=== PATIENT | male | born 1935 ===

== ENCOUNTER 2021-03-23 11:14 | Observation (INO) ==
[2021-03-23] MEDS ORDERED: SODIUM CHLORIDE 0.9% 500 ML IV STA (11:46)
[2021-03-23] MEDS ORDERED: cefTRIAXone 1,000 MG in SODIUM CHLORIDE 0.9% 100 ML IV STA (11:49)
[2021-03-23 12:28] LABS: Basophils % 0.1 % (0.0-0.8); Eosinophils % 0.1 % (0.00-10.9); Hematocrit 33.1 VOL% (42.0-52.0); Hemoglobin 11.9 GM/DL (14.0-18.0); Immature Granulocytes % 0.3 %; Immature Granulocytes Absolute 0.02 #; Lymphocytes # 2.3 10*3/uL (1.4-4.0); Mean Corpuscular Volume 82.8 FL (87-102); Mean Platelet Volume 11.1 FL (9.6-12.0); Monocytes % 6.7 % (1.7-12.7); Neutrophils % 58.8 % (38.7-73.9); Platelet Count 226 T/CUMM (130-400); Red Cell Distribution Width 15.1 % (9.3-17.3); White Blood Count 6.9 T/CUMM (4-12)
[2021-03-23 12:38] LABS: INR 1.1; PT Patient Result 11.8 SECS (10.5-12.0); Partial Thromboplastin Time 25.1 SECS (23.8-32.1)
[2021-03-23 12:51] LABS: Albumin 3.3 G/DL (3.4-5.0); Bilirubin,Total 0.7 MG/DL (0.20-1.00); Calcium 9.8 MG/DL (8.5-10.1); Osmolality,Calculated 282.3 MOS/KG (273-304); Potassium 3.6 MMOL/L (3.5-5.1); Total Protein 6.3 G/DL (6.4-8.2)
[2021-03-23 13:30] LABS: Sedimentation Rate-Westergren 28 MM/HR (0-20)
[2021-03-23 13:51] LABS: Bacteria,Urine Occasional /HPF (Few); Bilirubin,Urine Negative (Negative); Blood, Urine Moderate mg/dL (Negative); Glucose,Urine (UA) Negative (Negative); Hyaline Casts,Urine 1 /LPF (0-3); Ketones,Urine Negative (Negative); Mucus,Urine Occasional /LPF (Occasional); Nitrite,Urine Negative (Negative); Protein,Urine Negative; RBC,Urine 44 /HPF (0-4); Squamous Epithelial Cell,Urine Occasional /HPF (0-10); Urine Appearance CLEAR (Clear); Urine Color Straw (Yellow); Urine Specific Gravity 1.004 (1.001-1.035); Urine Urobilinogen < 2.0 EU/DL (<2.0)
[2021-03-23] MEDS ORDERED: DEXTROSE 50% 25 GM/50 ML SYRINGE IV PRN (14:52)
[2021-03-23] MEDS ORDERED: DOCUSATE SODIUM 100 MG CAPSULE PO PRN (14:52)
[2021-03-23] MEDS ORDERED: GLUCAGON 1 MG VIAL IM PRN (14:52)
[2021-03-23] MEDS ORDERED: CALCIUM CARBONATE CHEW 500 MG TABLET PO PRN (14:52)
[2021-03-23] MEDS ORDERED: SIMETHICONE CHEW 125 MG TABLET PO PRN (14:52)
[2021-03-23] MEDS ORDERED: ONDANSETRON 4 MG/2 ML VIAL IV PRN (14:52)
[2021-03-23] MEDS ORDERED: ACETAMINOPHEN 325 MG TABLET PO PRN (14:52)
[2021-03-23] MEDS: LACTATED RINGERS 1,000 ML IV SCH (16:10)
[2021-03-23] MEDS: PANTOPRAZOLE 40 MG TABLET PO SCH (16:10)
[2021-03-23] MEDS: INSULIN LISPRO 100 UNIT/ML SUBCUT SCH ×2 (18:20→23:50)
[2021-03-24] MEDS: INSULIN LISPRO 100 UNIT/ML SUBCUT SCH ×2 (05:43→13:35)
[2021-03-24 06:25] LABS: Basophils % 0.2 % (0.0-0.8); Eosinophils % 0.4 % (0.00-10.9); Hematocrit 28.6 VOL% (42.0-52.0); Hemoglobin 10.4 GM/DL (14.0-18.0); Immature Granulocytes % 0.2 %; Immature Granulocytes Absolute 0.01 #; Lymphocytes # 1.2 10*3/uL (1.4-4.0); Lymphocytes % 23.4 % (21.2-54.2); Mean Corpuscular HGB Conc 36.4 GM/DL (32-36); Mean Corpuscular Volume 82.7 FL (87-102); Mean Platelet Volume 11.2 FL (9.6-12.0); Monocytes % 8.3 % (1.7-12.7); Neutrophils % 67.5 % (38.7-73.9); Platelet Count 197 T/CUMM (130-400); Red Blood Count 3.46 MC/CUMM (3.8-5.5); Red Cell Distribution Width 15.1 % (9.3-17.3); White Blood Count 5.1 T/CUMM (4-12)
[2021-03-24 06:40] LABS: Albumin 2.4 G/DL (3.4-5.0); Bilirubin,Total 1.2 MG/DL (0.20-1.00); Osmolality,Calculated 287.8 MOS/KG (273-304); Potassium 3.5 MMOL/L (3.5-5.1); Risk Ratio 1.82; Total Protein 5.2 G/DL (6.4-8.2); VLDL Cholesterol 7.8 MG/DL
[2021-03-24 08:46] LABS: Platelet Estimate Normal; Target Cells Few
[2021-03-24] MEDS ORDERED: cefTRIAXone 1,000 MG VIAL IV SCH (09:00)
[2021-03-24] MEDS ORDERED: DESITIN 4OZ/NYSTATIN 15 GRAM MIXTURE PASTE TOP SCH (09:00)
[2021-03-24] MEDS: PANTOPRAZOLE 40 MG TABLET PO SCH (09:15)
[2021-03-24] MEDS: LACTATED RINGERS 1,000 ML IV SCH ×2 (09:18→11:47)
[2021-03-24 12:47] VITALS: BP 100/51
== END 2021-03-24 14:18 | disposition home health service (06) ==
LOC: EDUNIT# → EDBD → N.ED 11:14 → N.TELES 11:14
PROVIDERS: ADMIT Internal Medicine; ATTEND Internal Medicine

== ENCOUNTER 2021-04-04 23:35 | Inpatient (IN) ==
[2021-04-05 00:11] LABS: Hemoglobin 11.1 GM/DL (14.0-18.0); Immature Granulocytes % 0.2 %; Immature Granulocytes Absolute 0.01 #; Lymphocytes # 1.1 10*3/uL (1.4-4.0); Lymphocytes % 22.8 % (21.2-54.2); Mean Corpuscular HGB Conc 35.8 GM/DL (32-36); Mean Corpuscular Volume 82.9 FL (87-102); Mean Platelet Volume 11.4 FL (9.6-12.0); Monocytes % 4.7 % (1.7-12.7); Neutrophils % 72.3 % (38.7-73.9); Platelet Count 173 T/CUMM (130-400); Red Blood Count 3.74 MC/CUMM (3.8-5.5); Red Cell Distribution Width 14.5 % (9.3-17.3); White Blood Count 4.7 T/CUMM (4-12)
[2021-04-05 00:27] LABS: Albumin 2.8 G/DL (3.4-5.0); Bilirubin,Total 0.7 MG/DL (0.20-1.00); Calcium 9.6 MG/DL (8.5-10.1); Osmolality,Calculated 277.8 MOS/KG (273-304); Potassium 3.9 MMOL/L (3.5-5.1); Total Protein 6.2 G/DL (6.4-8.2)
[2021-04-05 00:39] LABS: Bilirubin,Urine Negative (Negative); Blood, Urine Small mg/dL (Negative); Glucose,Urine (UA) 50 mg/dL (Negative); Ketones,Urine Negative (Negative); Mucus,Urine Occasional /LPF (Occasional); Nitrite,Urine Negative (Negative); Protein,Urine 30 MG/DL; RBC,Urine 1 /HPF (0-4); Squamous Epithelial Cell,Urine Occasional /HPF (0-10); Urine Appearance CLEAR (Clear); Urine Color Yellow (Yellow); Urine Specific Gravity 1.016 (1.001-1.035); Urine Urobilinogen < 2.0 EU/DL (<2.0)
[2021-04-05 00:44] LABS: Barbiturates Screen,Urine Negative (Negative); Benzodiazepines Screen,Urine Negative (Negative); Cannabinoid Screen,Urine Negative (Negative); Opiate Screen,Urine Negative (Negative); Phencyclidine Screen,Urine Negative (Negative)
[2021-04-05 00:48] LABS: PT Patient Result 11.6 SECS (10.5-12.0); Partial Thromboplastin Time 25.9 SECS (23.8-32.1)
[2021-04-05] MEDS ORDERED: DEXTROSE 50% 25 GM/50 ML SYRINGE IV PRN (02:24)
[2021-04-05] MEDS ORDERED: GLUCAGON 1 MG VIAL IM PRN (02:24)
[2021-04-05 03:53] LABS: Hematocrit 30.8 VOL% (42.0-52.0); Immature Granulocytes % 0.2 %; Immature Granulocytes Absolute 0.01 #; Lymphocytes % 23.1 % (21.2-54.2); Mean Corpuscular HGB Conc 35.7 GM/DL (32-36); Mean Corpuscular Volume 82.8 FL (87-102); Mean Platelet Volume 11.1 FL (9.6-12.0); Monocytes % 4.3 % (1.7-12.7); Neutrophils % 72.4 % (38.7-73.9); Platelet Count 187 T/CUMM (130-400); Red Blood Count 3.72 MC/CUMM (3.8-5.5); Red Cell Distribution Width 14.4 % (9.3-17.3); White Blood Count 4.2 T/CUMM (4-12)
[2021-04-05 04:14] LABS: Calcium 9.8 MG/DL (8.5-10.1); Osmolality,Calculated 278.8 MOS/KG (273-304); Potassium 3.6 MMOL/L (3.5-5.1); Risk Ratio 1.93; VLDL Cholesterol 6.4 MG/DL
[2021-04-05] MEDS: LACTATED RINGERS 1,000 ML IV SCH (04:29)
[2021-04-05] MEDS ORDERED: LORazepam 2 MG/1 ML VIAL ONE (06:14)
[2021-04-05] MEDS ORDERED: LORazepam 2 MG/1 ML VIAL IV ONE (06:15)
[2021-04-05] MEDS: ALBUTEROL/IPRATROPIUM 3 ML NEB RESP TX SCH ×2 (07:25→14:05)
[2021-04-05] MEDS ORDERED: ASPIRIN EC 81 MG TABLET PO SCH (09:00)
[2021-04-05] MEDS ORDERED: ATORVASTATIN 20 MG TABLET PO SCH (09:00)
[2021-04-05] MEDS ORDERED: INFLUENZA VIRUS VACCINE 0.5 ML SYRINGE IM ONE (09:00)
[2021-04-05] MEDS: ENOXAPARIN 40 MG/0.4 ML SYRINGE SUBCUT SCH ×2 (09:35→09:42)
[2021-04-05] MEDS: PANTOPRAZOLE 40 MG TABLET PO SCH (09:35)
[2021-04-05] MEDS ORDERED: SODIUM CHLORIDE 0.9% 500 ML IV ONE (13:30)
[2021-04-05] MEDS ORDERED: NOREPINEPHRINE 4 MG/4 ML VIAL IV ONE (13:46)
[2021-04-05] MEDS: NOREPINEPHRINE 8 MG in SODIUM CHLORIDE 0.9% 242 ML IV PRN (13:50)
[2021-04-05 14:10] LABS: ABG HCO3 22.4 MMOL/L (20-26); ABG Oxygen Saturation 94.4 % (95-100); ABG PCO2 29.5 MM HG (35-48); ABG PH 7.499 (7.35-7.45); ABG PO2 70.4 MM HG (80-95); ABG TCO2 23.3 MMOL/L (23-27)
[2021-04-05 14:11] LABS: Hematocrit 27.3 VOL% (42.0-52.0); Hemoglobin 9.9 GM/DL (14.0-18.0); Immature Granulocytes % 0.3 %; Immature Granulocytes Absolute 0.01 #; Lymphocytes # 0.8 10*3/uL (1.4-4.0); Lymphocytes % 26.6 % (21.2-54.2); Mean Corpuscular HGB Conc 36.3 GM/DL (32-36); Monocytes % 7.1 % (1.7-12.7); Platelet Count 170 T/CUMM (130-400); Red Blood Count 3.33 MC/CUMM (3.8-5.5); Red Cell Distribution Width 14.4 % (9.3-17.3); White Blood Count 3.1 T/CUMM (4-12)
[2021-04-05] MEDS: HYDROCORTISONE 100 MG VIAL IV SCH ×2 (14:20→19:45)
[2021-04-05 14:24] LABS: Osmolality,Calculated 286.3 MOS/KG (273-304); Potassium 3.2 MMOL/L (3.5-5.1)
[2021-04-05 14:28] LABS: Lactic Acid 1.8 MMOL/L (0.4-2.0)
[2021-04-05] MEDS: cefTRIAXone 1,000 MG in SODIUM CHLORIDE 0.9% 100 ML IV SCH (14:30)
[2021-04-05] MEDS ORDERED: AZITHROMYCIN INJ 500 MG in SODIUM CHLORIDE 0.9% 250 ML IV ONE (15:00)
[2021-04-05] MEDS: VANCOMYCIN INJ 1,000 MG in SODIUM CHLORIDE 0.9% 250 ML IV SCH (15:00)
[2021-04-05] MEDS: ASPIRIN 300 MG SUPP RECTAL SCH (16:30)
[2021-04-05 17:16] LABS: Lymphocytes 25 % (20-55); Segmented Neutrophils 73 % (50-85); Total Cells Counted 100
[2021-04-05 17:17] LABS: Microcytosis 1+; Platelet Estimate Decreased; Reactive Lymphocytes 1+
[2021-04-05] MEDS: SKIN HEALING OINT (AQUAPHOR) 50 GM TUBE TOP SCH (18:11)
[2021-04-05 20:35] LABS: ABG Base Excess -0.4 MMOL/L (-2.5-2.5); ABG HCO3 24.2 MMOL/L (20-26); ABG PCO2 26.6 MM HG (35-48); ABG PH 7.513 (7.35-7.45); ABG TCO2 18.8 MMOL/L (23-27)
[2021-04-06] MEDS: LORazepam 2 MG/1 ML VIAL IV PRN ×2 (01:46→05:26)
[2021-04-06] MEDS: HYDROCORTISONE 100 MG VIAL IV SCH ×3 (02:45→15:52)
[2021-04-06] MEDS ORDERED: PHENTOLAMINE 5 MG VIAL ONE (02:50)
[2021-04-06] MEDS ORDERED: PHENTOLAMINE 5 MG VIAL INFILTRAT ONE (02:56)
[2021-04-06] MEDS: VANCOMYCIN INJ 1,000 MG in SODIUM CHLORIDE 0.9% 250 ML IV SCH (03:22)
[2021-04-06 05:37] LABS: Basophils % 0.2 % (0.0-0.8); Hematocrit 31.6 VOL% (42.0-52.0); Hemoglobin 11.5 GM/DL (14.0-18.0); Immature Granulocytes % 0.5 %; Immature Granulocytes Absolute 0.06 #; Lymphocytes # 1.6 10*3/uL (1.4-4.0); Lymphocytes % 12.3 % (21.2-54.2); Mean Corpuscular HGB Conc 36.4 GM/DL (32-36); Mean Corpuscular Volume 81.2 FL (87-102); Mean Platelet Volume 11.7 FL (9.6-12.0); Monocytes % 2.3 % (1.7-12.7); Neutrophils % 84.7 % (38.7-73.9); Platelet Count 213 T/CUMM (130-400); Red Blood Count 3.89 MC/CUMM (3.8-5.5); Red Cell Distribution Width 14.6 % (9.3-17.3); White Blood Count 13.3 T/CUMM (4-12)
[2021-04-06 05:56] LABS: Calcium 9.2 MG/DL (8.5-10.1); Osmolality,Calculated 282.7 MOS/KG (273-304); Potassium 3.7 MMOL/L (3.5-5.1)
[2021-04-06] MEDS: ALBUTEROL/IPRATROPIUM 3 ML NEB RESP TX SCH ×4 (06:10→19:08)
[2021-04-06] MEDS: ENOXAPARIN 40 MG/0.4 ML SYRINGE SUBCUT SCH (10:00)
[2021-04-06] MEDS: LACTATED RINGERS 1,000 ML IV SCH ×2 (10:00→15:36)
[2021-04-06] MEDS: SKIN HEALING OINT (AQUAPHOR) 50 GM TUBE TOP SCH (10:17)
[2021-04-06] MEDS: ATORVASTATIN 40 MG TABLET PO SCH (10:17)
[2021-04-06] MEDS: PANTOPRAZOLE 40 MG TABLET PO SCH (10:18)
[2021-04-06] MEDS: ASPIRIN 300 MG SUPP RECTAL SCH (11:08)
[2021-04-06] MEDS: cefTRIAXone 1,000 MG in SODIUM CHLORIDE 0.9% 100 ML IV SCH (15:36)
[2021-04-06] MEDS: AZITHROMYCIN INJ 250 MG in SODIUM CHLORIDE 0.9% 250 ML IV SCH (15:41)
[2021-04-07] MEDS: ALBUTEROL/IPRATROPIUM 3 ML NEB RESP TX SCH ×4 (00:47→18:19)
[2021-04-07] MEDS: HYDROCORTISONE 100 MG VIAL IV SCH ×2 (02:13→16:30)
[2021-04-07] MEDS: VANCOMYCIN INJ 1,000 MG in SODIUM CHLORIDE 0.9% 250 ML IV SCH (02:14)
[2021-04-07] MEDS: LACTATED RINGERS 1,000 ML IV SCH ×2 (03:16→05:33)
[2021-04-07] MEDS ORDERED: LORazepam 2 MG/1 ML VIAL IV PRN (03:47)
[2021-04-07 05:06] LABS: Basophils % 0.1 % (0.0-0.8); Hematocrit 28.8 VOL% (42.0-52.0); Hemoglobin 10.3 GM/DL (14.0-18.0); Immature Granulocytes % 0.4 %; Immature Granulocytes Absolute 0.03 #; Lymphocytes # 1.2 10*3/uL (1.4-4.0); Lymphocytes % 14.4 % (21.2-54.2); Mean Corpuscular HGB Conc 35.8 GM/DL (32-36); Mean Corpuscular Volume 82.5 FL (87-102); Mean Platelet Volume 11.6 FL (9.6-12.0); Monocytes % 6.9 % (1.7-12.7); Neutrophils % 78.2 % (38.7-73.9); Platelet Count 179 T/CUMM (130-400); Red Blood Count 3.49 MC/CUMM (3.8-5.5); Red Cell Distribution Width 14.6 % (9.3-17.3); White Blood Count 8.2 T/CUMM (4-12)
[2021-04-07 05:30] LABS: Calcium 8.8 MG/DL (8.5-10.1); Osmolality,Calculated 289.1 MOS/KG (273-304); Potassium 3.3 MMOL/L (3.5-5.1)
[2021-04-07] MEDS: NOREPINEPHRINE 8 MG in SODIUM CHLORIDE 0.9% 242 ML IV PRN (11:30)
[2021-04-07 11:35] LABS: Lymphocytes,CSF 1 %; Monocytes,CSF 8 %; Neutrophils,CSF 91 %; Red Blood Cell,CSF 25 C/CUMM; White Blood Cell,CSF 162 C/CUMM
[2021-04-07 11:36] LABS: Appearance,CSF Clear
[2021-04-07 11:39] LABS: Glucose,CSF 99 MG/DL (40-70)
[2021-04-07] MEDS: AZITHROMYCIN INJ 250 MG in SODIUM CHLORIDE 0.9% 250 ML IV SCH (16:00)
[2021-04-07] MEDS: cefTRIAXone 1,000 MG in SODIUM CHLORIDE 0.9% 100 ML IV SCH (16:30)
[2021-04-07] MEDS: SKIN HEALING OINT (AQUAPHOR) 50 GM TUBE TOP SCH (16:50)
[2021-04-07] MEDS: ASPIRIN 300 MG SUPP RECTAL SCH (17:25)
[2021-04-07] MEDS: PANTOPRAZOLE 40 MG TABLET PO SCH (17:26)
[2021-04-07] MEDS: ATORVASTATIN 40 MG TABLET PO SCH ×2 (17:26→21:30)
[2021-04-07] MEDS ORDERED: LORazepam 2 MG/1 ML VIAL IV ONE (20:24)
[2021-04-08] MEDS: LACTATED RINGERS 1,000 ML IV SCH ×2 (00:15→16:03)
[2021-04-08] MEDS: ALBUTEROL/IPRATROPIUM 3 ML NEB RESP TX SCH ×4 (00:55→19:40)
[2021-04-08] MEDS: HYDROCORTISONE 100 MG VIAL IV SCH ×3 (02:19→21:10)
[2021-04-08] MEDS: VANCOMYCIN INJ 1,000 MG in SODIUM CHLORIDE 0.9% 250 ML IV SCH (02:20)
[2021-04-08] MEDS: PANTOPRAZOLE 40 MG VIAL IV SCH (08:03)
[2021-04-08] MEDS: SKIN HEALING OINT (AQUAPHOR) 50 GM TUBE TOP SCH (08:03)
[2021-04-08] MEDS: ASPIRIN CHEW 81 MG TABLET PO SCH (08:03)
[2021-04-08] MEDS: MIDODRINE 5 MG TABLET PO SCH ×2 (08:03→21:10)
[2021-04-08] MEDS: INSULIN REGULAR 100 UNIT/ML SUBCUT SCH ×2 (12:10→18:03)
[2021-04-08 13:41] LABS: VDRL Spinal Fluid Negative (Negative)
[2021-04-08] MEDS: AZITHROMYCIN INJ 250 MG in SODIUM CHLORIDE 0.9% 250 ML IV SCH (15:20)
[2021-04-08] MEDS: cefTRIAXone 1,000 MG in SODIUM CHLORIDE 0.9% 100 ML IV SCH (15:50)
[2021-04-08] MEDS: ATORVASTATIN 40 MG TABLET PO SCH (21:10)
[2021-04-09] MEDS: ALBUTEROL/IPRATROPIUM 3 ML NEB RESP TX SCH ×4 (00:10→20:10)
[2021-04-09] MEDS: INSULIN REGULAR 100 UNIT/ML SUBCUT SCH ×3 (00:35→18:34)
[2021-04-09 01:35] LABS: Basophils % 0.1 % (0.0-0.8); Hematocrit 27.9 VOL% (42.0-52.0); Hemoglobin 10.1 GM/DL (14.0-18.0); Immature Granulocytes % 0.5 %; Immature Granulocytes Absolute 0.04 #; Lymphocytes # 0.7 10*3/uL (1.4-4.0); Lymphocytes % 8.8 % (21.2-54.2); Mean Corpuscular HGB Conc 36.2 GM/DL (32-36); Mean Corpuscular Volume 82.5 FL (87-102); Monocytes % 4.6 % (1.7-12.7); Platelet Count 165 T/CUMM (130-400); Red Blood Count 3.38 MC/CUMM (3.8-5.5); Red Cell Distribution Width 14.6 % (9.3-17.3); White Blood Count 8.3 T/CUMM (4-12)
[2021-04-09] MEDS: VANCOMYCIN INJ 1,000 MG in SODIUM CHLORIDE 0.9% 250 ML IV SCH (01:40)
[2021-04-09 01:58] LABS: Albumin 2.1 G/DL (3.4-5.0); Bilirubin,Total 0.5 MG/DL (0.20-1.00); Calcium 9.1 MG/DL (8.5-10.1); Osmolality,Calculated 295.7 MOS/KG (273-304); Potassium 3.4 MMOL/L (3.5-5.1); Total Protein 5.2 G/DL (6.4-8.2)
[2021-04-09] MEDS: PANTOPRAZOLE 40 MG VIAL IV SCH (08:57)
[2021-04-09] MEDS: HYDROCORTISONE 100 MG VIAL IV SCH ×2 (08:58→21:56)
[2021-04-09] MEDS: ASPIRIN CHEW 81 MG TABLET PO SCH (08:58)
[2021-04-09] MEDS: MIDODRINE 5 MG TABLET PO SCH ×2 (08:58→22:08)
[2021-04-09] MEDS: LACTATED RINGERS 1,000 ML IV SCH (14:00)
[2021-04-09 15:01] LABS: Adenovirus PCR Negative (Negative); Specimen Source CSF
[2021-04-09] MEDS: cefTRIAXone 1,000 MG in SODIUM CHLORIDE 0.9% 100 ML IV SCH (18:00)
[2021-04-09] MEDS: AZITHROMYCIN INJ 250 MG in SODIUM CHLORIDE 0.9% 250 ML IV SCH (18:39)
[2021-04-09] MEDS ORDERED: VANCOMYCIN INJ 1,000 MG in SODIUM CHLORIDE 0.9% 250 ML IV SCH (20:00)
[2021-04-09] MEDS: SKIN HEALING OINT (AQUAPHOR) 50 GM TUBE TOP SCH (22:06)
[2021-04-09] MEDS: ATORVASTATIN 40 MG TABLET PO SCH (22:06)
[2021-04-10] MEDS: ALBUTEROL/IPRATROPIUM 3 ML NEB RESP TX SCH ×4 (00:44→19:06)
[2021-04-10] MEDS: INSULIN REGULAR 100 UNIT/ML SUBCUT SCH ×4 (00:45→19:08)
[2021-04-10 06:04] LABS: Hematocrit 30.9 VOL% (42.0-52.0); Hemoglobin 10.7 GM/DL (14.0-18.0); Immature Granulocytes % 0.8 %; Immature Granulocytes Absolute 0.06 #; Lymphocytes # 1.1 10*3/uL (1.4-4.0); Lymphocytes % 14.2 % (21.2-54.2); Mean Corpuscular HGB Conc 34.6 GM/DL (32-36); Mean Corpuscular Volume 84.7 FL (87-102); Mean Platelet Volume 11.7 FL (9.6-12.0); Monocytes % 5.2 % (1.7-12.7); Neutrophils % 79.8 % (38.7-73.9); Platelet Count 172 T/CUMM (130-400); Red Blood Count 3.65 MC/CUMM (3.8-5.5); Red Cell Distribution Width 14.7 % (9.3-17.3); White Blood Count 7.7 T/CUMM (4-12)
[2021-04-10 06:57] LABS: Osmolality,Calculated 298.6 MOS/KG (273-304); Potassium 3.6 MMOL/L (3.5-5.1)
[2021-04-10] MEDS: MIDODRINE 5 MG TABLET PO SCH ×2 (09:13→21:44)
[2021-04-10] MEDS: ASPIRIN CHEW 81 MG TABLET PO SCH (09:13)
[2021-04-10] MEDS: HYDROCORTISONE 100 MG VIAL IV SCH ×2 (09:14→21:45)
[2021-04-10] MEDS: LACTATED RINGERS 1,000 ML IV SCH (09:14)
[2021-04-10] MEDS: PANTOPRAZOLE 40 MG VIAL IV SCH (09:14)
[2021-04-10] MEDS: SKIN HEALING OINT (AQUAPHOR) 50 GM TUBE TOP SCH ×2 (09:15→11:04)
[2021-04-10 10:52] LABS: CMV PCR Source CSF; Epstein-Barr Virus Result Negative (Negative); Epstein-Barr Virus Source CSF
[2021-04-10] MEDS: POTASSIUM PHOS/SOD PHOS POWDER 250 MG PACK PER TUBE SCH ×3 (11:53→21:44)
[2021-04-10 12:26] LABS: West Nile Virus Ab, IgG, CSF Negative (Negative); West Nile Virus Ab, IgM, CSF Negative (Negative)
[2021-04-10 12:28] LABS: M. Tuberculosis PCR Result Negative (Negative); M. Tuberculosis PCR Source CSF
[2021-04-10] MEDS: cefTRIAXone 1,000 MG in SODIUM CHLORIDE 0.9% 100 ML IV SCH (14:47)
[2021-04-10] MEDS: ATORVASTATIN 40 MG TABLET PO SCH (21:44)
[2021-04-10] MEDS: APIXABAN 2.5 MG TABLET PO SCH (21:44)
[2021-04-10] MEDS: QUEtiapine 25 MG TABLET PO SCH (21:44)
[2021-04-11] MEDS: ALBUTEROL/IPRATROPIUM 3 ML NEB RESP TX SCH ×4 (00:33→21:08)
[2021-04-11] MEDS: INSULIN REGULAR 100 UNIT/ML SUBCUT SCH ×4 (00:46→19:14)
[2021-04-11] MEDS: POTASSIUM PHOS/SOD PHOS POWDER 250 MG PACK PER TUBE SCH (03:12)
[2021-04-11 05:35] LABS: Calcium 9.1 MG/DL (8.5-10.1); Osmolality,Calculated 290.8 MOS/KG (273-304); Potassium 3.3 MMOL/L (3.5-5.1)
[2021-04-11 05:36] LABS: Basophils % 0.1 % (0.0-0.8); Hematocrit 30.4 VOL% (42.0-52.0); Hemoglobin 10.6 GM/DL (14.0-18.0); Immature Granulocytes % 0.9 %; Immature Granulocytes Absolute 0.07 #; Lymphocytes # 1.2 10*3/uL (1.4-4.0); Mean Corpuscular HGB Conc 34.9 GM/DL (32-36); Mean Corpuscular Volume 83.3 FL (87-102); Mean Platelet Volume 11.5 FL (9.6-12.0); Platelet Count 196 T/CUMM (130-400); Red Blood Count 3.65 MC/CUMM (3.8-5.5); Red Cell Distribution Width 14.7 % (9.3-17.3); White Blood Count 8.2 T/CUMM (4-12)
[2021-04-11] MEDS ORDERED: POTASSIUM CHLORIDE RIDER 10 MEQ/100 ML PREMIX IV PRN (07:52)
[2021-04-11] MEDS ORDERED: AZITHROMYCIN INJ 500 MG in SODIUM CHLORIDE 0.9% 250 ML IV SCH (08:30)
[2021-04-11] MEDS: HYDROCORTISONE 100 MG VIAL IV SCH (08:41)
[2021-04-11] MEDS: ASPIRIN CHEW 81 MG TABLET PO SCH (10:31)
[2021-04-11] MEDS: APIXABAN 2.5 MG TABLET PO SCH ×2 (10:31→21:02)
[2021-04-11] MEDS: SKIN HEALING OINT (AQUAPHOR) 50 GM TUBE TOP SCH (10:32)
[2021-04-11] MEDS: PANTOPRAZOLE 40 MG VIAL IV SCH (10:32)
[2021-04-11] MEDS: MIDODRINE 5 MG TABLET PO SCH ×2 (10:32→21:03)
[2021-04-11] MEDS: QUEtiapine 25 MG TABLET PO SCH ×2 (10:32→21:02)
[2021-04-11] MEDS: POTASSIUM BICARB EFFERVESCENT 20 MEQ TAB.EFF PER TUBE PRN ×3 (10:34→14:27)
[2021-04-11 13:46] LABS: Specimen Source CSF
[2021-04-11 13:57] LABS: Albumin, Serum 3000 mg/dL; IgG Index, CSF 0.73 (<=0.85); IgG, CSF 6.3 mg/dL (<=8.1); IgG, Serum 658 mg/dL (767 - 1590); IgG/Albumin Ratio, CSF 0.16 (<=0.21); Synthesis Rate, CSF 11.45 mg/24 h (<=12)
[2021-04-11] MEDS: cefTRIAXone 1,000 MG in SODIUM CHLORIDE 0.9% 100 ML IV SCH (14:50)
[2021-04-11] MEDS: ATORVASTATIN 40 MG TABLET PO SCH (21:03)
[2021-04-12] MEDS: INSULIN REGULAR 100 UNIT/ML SUBCUT SCH ×4 (00:29→17:46)
[2021-04-12] MEDS: ALBUTEROL/IPRATROPIUM 3 ML NEB RESP TX SCH ×4 (00:30→19:45)
[2021-04-12 05:09] LABS: Basophils % 0.1 % (0.0-0.8); Eosinophils # 0.1 10*3/uL (0.0-0.87); Eosinophils % 1.8 % (0.00-10.9); Hematocrit 30.4 VOL% (42.0-52.0); Hemoglobin 10.8 GM/DL (14.0-18.0); Immature Granulocytes % 0.8 %; Immature Granulocytes Absolute 0.06 #; Lymphocytes # 1.6 10*3/uL (1.4-4.0); Lymphocytes % 21.9 % (21.2-54.2); Mean Corpuscular HGB Conc 35.5 GM/DL (32-36); Mean Corpuscular Volume 83.3 FL (87-102); Mean Platelet Volume 11.5 FL (9.6-12.0); Monocytes % 6.4 % (1.7-12.7); NRBC # 0.03 10*3/uL; Platelet Count 204 T/CUMM (130-400); Red Blood Count 3.65 MC/CUMM (3.8-5.5); Red Cell Distribution Width 15.4 % (9.3-17.3); White Blood Count 7.3 T/CUMM (4-12)
[2021-04-12 05:41] LABS: Calcium 8.4 MG/DL (8.5-10.1); Osmolality,Calculated 292.6 MOS/KG (273-304); Potassium 3.7 MMOL/L (3.5-5.1)
[2021-04-12] MEDS: QUEtiapine 25 MG TABLET PO SCH ×2 (09:45→20:27)
[2021-04-12] MEDS: ASPIRIN EC 81 MG TABLET PO SCH (09:45)
[2021-04-12] MEDS: MIDODRINE 5 MG TABLET PO SCH ×2 (09:45→20:27)
[2021-04-12] MEDS: SKIN HEALING OINT (AQUAPHOR) 50 GM TUBE TOP SCH (09:45)
[2021-04-12] MEDS: OMEPRAZOLE ODT 20 MG TABLET PO SCH (09:45)
[2021-04-12] MEDS: APIXABAN 2.5 MG TABLET PO SCH (09:45)
[2021-04-12] MEDS: cefTRIAXone 1,000 MG in SODIUM CHLORIDE 0.9% 100 ML IV SCH (14:25)
[2021-04-12] MEDS ORDERED: TUBERCULIN SKIN TEST 0.1 ML SYRINGE INTRADERM ONE (15:00)
[2021-04-12] MEDS: ATORVASTATIN 40 MG TABLET PO SCH (20:27)
[2021-04-13] MEDS: ALBUTEROL/IPRATROPIUM 3 ML NEB RESP TX SCH ×4 (00:20→21:06)
[2021-04-13] MEDS: INSULIN REGULAR 100 UNIT/ML SUBCUT SCH ×4 (02:14→19:24)
[2021-04-13] MEDS: SKIN HEALING OINT (AQUAPHOR) 50 GM TUBE TOP SCH (13:51)
[2021-04-13] MEDS: ASPIRIN EC 81 MG TABLET PO SCH (13:52)
[2021-04-13] MEDS: OMEPRAZOLE ODT 20 MG TABLET PO SCH (13:52)
[2021-04-13] MEDS: QUEtiapine 25 MG TABLET PO SCH ×2 (13:53→21:05)
[2021-04-13] MEDS: MIDODRINE 5 MG TABLET PO SCH ×2 (13:53→21:05)
[2021-04-13] MEDS: cefTRIAXone 1,000 MG in SODIUM CHLORIDE 0.9% 100 ML IV SCH (14:15)
[2021-04-13] MEDS: DESITIN 4OZ/NYSTATIN 15 GRAM MIXTURE PASTE TOP SCH ×2 (14:59→21:05)
[2021-04-13] MEDS: ATORVASTATIN 40 MG TABLET PO SCH (21:04)
[2021-04-14] MEDS: ALBUTEROL/IPRATROPIUM 3 ML NEB RESP TX SCH ×4 (00:15→19:14)
[2021-04-14] MEDS: INSULIN REGULAR 100 UNIT/ML SUBCUT SCH ×4 (01:21→17:35)
[2021-04-14 05:16] LABS: Basophils % 0.1 % (0.0-0.8); Eosinophils # 0.1 10*3/uL (0.0-0.87); Eosinophils % 1.1 % (0.00-10.9); Hematocrit 31.4 VOL% (42.0-52.0); Immature Granulocytes % 0.6 %; Immature Granulocytes Absolute 0.04 #; Lymphocytes # 1.5 10*3/uL (1.4-4.0); Lymphocytes % 21.2 % (21.2-54.2); Mean Platelet Volume 11.8 FL (9.6-12.0); Monocytes % 7.9 % (1.7-12.7); Neutrophils % 69.1 % (38.7-73.9); Platelet Count 220 T/CUMM (130-400); Red Blood Count 3.74 MC/CUMM (3.8-5.5); Red Cell Distribution Width 15.4 % (9.3-17.3); White Blood Count 7.2 T/CUMM (4-12)
[2021-04-14 05:30] LABS: Calcium 8.5 MG/DL (8.5-10.1); Osmolality,Calculated 279.7 MOS/KG (273-304); Potassium 4.1 MMOL/L (3.5-5.1)
[2021-04-14] MEDS: DESITIN 4OZ/NYSTATIN 15 GRAM MIXTURE PASTE TOP SCH ×2 (08:19→20:24)
[2021-04-14] MEDS: ASPIRIN EC 81 MG TABLET PO SCH (08:19)
[2021-04-14] MEDS: QUEtiapine 25 MG TABLET PO SCH ×2 (08:19→20:23)
[2021-04-14] MEDS: MIDODRINE 5 MG TABLET PO SCH ×2 (08:19→20:23)
[2021-04-14] MEDS: OMEPRAZOLE ODT 20 MG TABLET PO SCH (08:19)
[2021-04-14] MEDS: SKIN HEALING OINT (AQUAPHOR) 50 GM TUBE TOP SCH (08:20)
[2021-04-14] MEDS ORDERED: DEXTROSE 10% 250 ML BAG IV PRN (10:30)
[2021-04-14] MEDS: cefTRIAXone 1,000 MG in SODIUM CHLORIDE 0.9% 100 ML IV SCH (15:58)
[2021-04-14] MEDS: ENOXAPARIN 80 MG/0.8 ML SYRINGE SUBCUT SCH (20:23)
[2021-04-14] MEDS: ATORVASTATIN 40 MG TABLET PO SCH (20:23)
[2021-04-15] MEDS: INSULIN REGULAR 100 UNIT/ML SUBCUT SCH ×4 (00:09→18:38)
[2021-04-15] MEDS: ALBUTEROL/IPRATROPIUM 3 ML NEB RESP TX SCH ×4 (01:27→19:50)
[2021-04-15 07:14] LABS: INR 1.1; PT Patient Result 11.7 SECS (10.5-12.0)
[2021-04-15] MEDS: DESITIN 4OZ/NYSTATIN 15 GRAM MIXTURE PASTE TOP SCH ×2 (10:00→23:52)
[2021-04-15] MEDS: SKIN HEALING OINT (AQUAPHOR) 50 GM TUBE TOP SCH (10:00)
[2021-04-15] MEDS: QUEtiapine 25 MG TABLET PO SCH ×2 (10:15→20:23)
[2021-04-15] MEDS: ASPIRIN EC 81 MG TABLET PO SCH (10:15)
[2021-04-15] MEDS: MIDODRINE 5 MG TABLET PO SCH ×2 (10:15→20:23)
[2021-04-15] MEDS: OMEPRAZOLE ODT 20 MG TABLET PO SCH (10:15)
[2021-04-15] MEDS: ENOXAPARIN 80 MG/0.8 ML SYRINGE SUBCUT SCH ×2 (10:17→20:23)
[2021-04-15] MEDS: cefTRIAXone 1,000 MG in SODIUM CHLORIDE 0.9% 100 ML IV SCH (15:24)
[2021-04-15] MEDS: ATORVASTATIN 40 MG TABLET PO SCH (20:23)
[2021-04-16] MEDS: ALBUTEROL/IPRATROPIUM 3 ML NEB RESP TX SCH ×4 (01:58→19:17)
[2021-04-16] MEDS: INSULIN REGULAR 100 UNIT/ML SUBCUT SCH ×5 (05:17→23:26)
[2021-04-16 07:19] LABS: Basophils % 0.2 % (0.0-0.8); Eosinophils # 0.1 10*3/uL (0.0-0.87); Eosinophils % 2.1 % (0.00-10.9); Hematocrit 31.6 VOL% (42.0-52.0); Hemoglobin 10.9 GM/DL (14.0-18.0); Immature Granulocytes % 0.8 %; Immature Granulocytes Absolute 0.04 #; Lymphocytes # 1.4 10*3/uL (1.4-4.0); Lymphocytes % 29.6 % (21.2-54.2); Mean Corpuscular HGB Conc 34.5 GM/DL (32-36); Mean Corpuscular Volume 84.3 FL (87-102); Mean Platelet Volume 11.8 FL (9.6-12.0); Monocytes % 6.8 % (1.7-12.7); Neutrophils % 60.5 % (38.7-73.9); Platelet Count 223 T/CUMM (130-400); Red Blood Count 3.75 MC/CUMM (3.8-5.5); Red Cell Distribution Width 15.6 % (9.3-17.3); White Blood Count 4.9 T/CUMM (4-12)
[2021-04-16 07:54] LABS: Calcium 8.3 MG/DL (8.5-10.1); Osmolality,Calculated 284.3 MOS/KG (273-304); Potassium 4.5 MMOL/L (3.5-5.1)
[2021-04-16 08:04] LABS: Platelet Estimate Normal
[2021-04-16 08:05] LABS: Anisocytosis 1+; Macrocytosis Slight; Target Cells Few
[2021-04-16] MEDS: ASPIRIN EC 81 MG TABLET PO SCH (09:49)
[2021-04-16] MEDS: MIDODRINE 5 MG TABLET PO SCH ×2 (09:49→21:23)
[2021-04-16] MEDS: SKIN HEALING OINT (AQUAPHOR) 50 GM TUBE TOP SCH (09:49)
[2021-04-16] MEDS: DESITIN 4OZ/NYSTATIN 15 GRAM MIXTURE PASTE TOP SCH ×2 (09:50→21:24)
[2021-04-16] MEDS: QUEtiapine 25 MG TABLET PO SCH ×2 (09:50→21:24)
[2021-04-16] MEDS: OMEPRAZOLE ODT 20 MG TABLET PO SCH (16:00)
[2021-04-16] MEDS: ATORVASTATIN 40 MG TABLET PO SCH (21:24)
[2021-04-17] MEDS: ALBUTEROL/IPRATROPIUM 3 ML NEB RESP TX SCH ×4 (00:38→19:50)
[2021-04-17] MEDS: INSULIN REGULAR 100 UNIT/ML SUBCUT SCH ×3 (06:34→20:01)
[2021-04-17] MEDS: SKIN HEALING OINT (AQUAPHOR) 50 GM TUBE TOP SCH (10:15)
[2021-04-17] MEDS: DESITIN 4OZ/NYSTATIN 15 GRAM MIXTURE PASTE TOP SCH (10:15)
[2021-04-17] MEDS: OMEPRAZOLE ODT 20 MG TABLET PO SCH (10:15)
[2021-04-17] MEDS: ASPIRIN EC 81 MG TABLET PO SCH ×2 (11:30→18:47)
[2021-04-17] MEDS: MIDODRINE 5 MG TABLET PO SCH (11:31)
[2021-04-17] MEDS: LACTATED RINGERS 1,000 ML IV SCH (12:56)
[2021-04-17] MEDS ORDERED: propofoL 200 MG/20 ML VIAL IV ONE (13:23)
[2021-04-17] MEDS ORDERED: LIDOCAINE 2% 5 ML VIAL ONE (13:23)
[2021-04-17] MEDS ORDERED: PHENYLEPHRINE 1 MG/10 ML SYRINGE IV ONE (13:24)
[2021-04-17] MEDS: QUEtiapine 25 MG TABLET PO SCH (18:42)
[2021-04-18] MEDS: MIDODRINE 5 MG TABLET PO SCH ×2 (00:10→10:22)
[2021-04-18] MEDS: QUEtiapine 25 MG TABLET PO SCH ×2 (00:10→10:22)
[2021-04-18] MEDS: ATORVASTATIN 40 MG TABLET PO SCH (00:12)
[2021-04-18] MEDS: DESITIN 4OZ/NYSTATIN 15 GRAM MIXTURE PASTE TOP SCH ×2 (00:12→10:22)
[2021-04-18] MEDS: ALBUTEROL/IPRATROPIUM 3 ML NEB RESP TX SCH ×2 (00:21→07:37)
[2021-04-18] MEDS: INSULIN REGULAR 100 UNIT/ML SUBCUT SCH ×3 (00:27→12:28)
[2021-04-18 06:03] LABS: Basophils % 0.1 % (0.0-0.8); Eosinophils # 0.1 10*3/uL (0.0-0.87); Eosinophils % 1.1 % (0.00-10.9); Hematocrit 33.4 VOL% (42.0-52.0); Hemoglobin 11.9 GM/DL (14.0-18.0); Immature Granulocytes % 0.4 %; Immature Granulocytes Absolute 0.03 #; Lymphocytes # 1.3 10*3/uL (1.4-4.0); Lymphocytes % 15.5 % (21.2-54.2); Mean Corpuscular HGB Conc 35.6 GM/DL (32-36); Mean Corpuscular Volume 84.1 FL (87-102); Mean Platelet Volume 11.5 FL (9.6-12.0); Monocytes % 4.4 % (1.7-12.7); Neutrophils % 78.5 % (38.7-73.9); Platelet Count 226 T/CUMM (130-400); Red Blood Count 3.97 MC/CUMM (3.8-5.5); Red Cell Distribution Width 15.3 % (9.3-17.3); White Blood Count 8.5 T/CUMM (4-12)
[2021-04-18 06:29] LABS: Calcium 9.3 MG/DL (8.5-10.1); Osmolality,Calculated 279.7 MOS/KG (273-304); Potassium 4.2 MMOL/L (3.5-5.1)
[2021-04-18] MEDS: SKIN HEALING OINT (AQUAPHOR) 50 GM TUBE TOP SCH (10:10)
[2021-04-18] MEDS: ASPIRIN EC 81 MG TABLET PO SCH (10:22)
[2021-04-18] MEDS: OMEPRAZOLE ODT 20 MG TABLET PO SCH (10:57)
[2021-04-18] MEDS: LACTATED RINGERS 1,000 ML IV SCH (10:57)
[2021-04-18 12:12] VITALS: BP 159/87
== END 2021-04-18 12:00 | disposition swing bed (61) | DRG 64 ==
LOC: N.ED 23:35 → SUATTDRO 04-05 02:24 → N.EDINP 04-05 02:24 → N.5E 04-05 06:06 → N.ICU 04-05 13:14 → N.5E 04-11 06:20
PROVIDERS: ADMIT Internal Medicine; ATTEND Internal Medicine
PROC: EGDWPEG (ICD-10-PCS; 2021-04-17 12:35)